=== PATIENT | female | born 1995 | race Two or more races ===

== ENCOUNTER 2017-06-29 16:56 | Emergency (ER) | payer SELFPAY ==
[2017-06-29 17:06] VITALS: BP 155/99
[2017-06-29] MEDS ORDERED: LORazepam 1 MG Tab PO ONE (18:01)
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
== END 2017-06-29 19:35 | disposition home or self-care (01) ==
LOC: JD.ED 16:56
DX: F41.9 Anxiety disorder, unspecified (principal); F32.9 Major depressive disorder, single episode, unspecified; Z98.890 Other specified postprocedural states; Z79.899 Other long term (current) drug therapy
CPT/HCPCS: 81001; 99284; A9270; 99283